=== PATIENT | female | born 1985 | race American Indian/Alaskan Native ===

== ENCOUNTER 2020-07-02 20:47 | Emergency (ER) | payer MEDICAID | END 2020-07-02 21:00 | disposition left against medical advice (07) | LOC: ED 20:47 | DX: O26.891 Other specified pregnancy related conditions, first trimester (principal); R51.9 Headache, unspecified; R11.0 Nausea; Z3A.01 Less than 8 weeks gestation of pregnancy; Z53.21 Procedure and treatment not carried out due to patient leaving prior to being seen by health care provider ==

== ENCOUNTER 2020-07-20 18:41 | Emergency (ER) | payer MEDICAID ==
[2020-07-20 21:18] VITALS: BP 141/83
[2020-07-20 22:08] LABS: Basophils # (Auto) 0.1 K/mm3 (0.0-0.1); Basophils % (Auto) 1.1 % (0.0-1.8); Eosinophils # (Auto) 0.1 K/mm3 (0.0-0.4); Eosinophils % (Auto) 1.1 % (0.0-4.3); Hematocrit 29.3 % (30.3-42.9); Hemoglobin 9.8 gm/dl (10.1-14.3); Lymphocytes # (Auto) 3.3 K/mm3 (1.2-5.4); Lymphocytes % (Auto) 34.5 % (13.4-35.0); Mean Corpuscular HGB Conc 33 % (30-34); Monocytes # (Auto) 0.9 K/mm3 (0.0-0.8); Monocytes % (Auto) 9.5 % (0.0-7.3); Platelet Count 563 K/mm3 (140-440); Red Blood Count 4.45 M/mm3 (3.65-5.03)
[2020-07-20 22:13] LABS: Mean Corpuscular Volume 66 fl (79-97); Red Cell Distribution Width 21.5 % (13.2-15.2)
[2020-07-20 22:18] LABS: INR 1.08 (0.87-1.13)
[2020-07-20 22:19] LABS: Partial Thromboplastin Time 28.6 Sec. (24.2-36.6)
--- NOTE | 2020-07-20 23:08 | Emergency Department Report ---
ED HPI - General Chief complaint: Vaginal Bleeding Stated complaint: MISCARRIAGE Time Seen by Provider: 07/20/20 21:38 Source: patient Mode of arrival: Ambulatory Limitations: No Limitations - History of Present Illness Initial comments: This is a 35-year-old female nontoxic, well nourished in appearance, no acute signs of distress presents to the ED with c/o of vaginal bleeding and pelvic pain x1 day. Stated had about 1-2 pads in the past 24 hours. Patient denies any vaginal discharge or foul odor. Patient denies any nausea, vomiting, chest pain, shortness of breathe, fever, chills, headache, stiff neck, numbness, tingling. Patient denies any urinary symptoms. Patient denies any significant past medical history. MD Complaint: vaginal bleeding -: days(s) Location: pelvis Radiation: none Severity: mild Severity scale (0 -10): 3 Quality: cramping, aching Consistency: intermittent Improves with: none Worsens with: none Associated symptoms: vaginal bleeding. denies: nausea/vomiting, vaginal discharge, abdominal pain, dysuria, headache, vision changes, malaise, dysparuenia, rash, seizure, shortness of breath, syncope, weakness Vaginal bleeding: light :: Yes Number of weeks : 8 Pre- care: none - Related Data Home Medications Medication Instructions Recorded Confirmed Last Taken Pnv95/Ferrous Fumarate/FA 1 each PO DAILY 06/25/13 06/25/13 Unknown [ Multivitamins Tablet] Previous Rx's Medication Instructions Recorded Last Taken Type Ferrous Sulfate [Feosol 325 MG tab] 325 mg PO BID #60 tablet 06/28/13 Unknown Rx Ibuprofen [Motrin] 600 mg PO Q6H PRN #30 tablet 06/28/13 Unknown Rx Ona027/Iron Fum/Folic/Docusate 1 each PO QDAY #30 tablet 06/28/13 Unknown Rx [ 19 Tablet] Nitrofurantoin Sanders/M-Cryst 100 mg PO Q12HR #14 capsule 07/21/20 Unknown Rx [Macrobid CAP] Allergies Allergy/AdvReac Type Severity Reaction Status Date / Time hydromorphone HCl Allergy Anaphylaxis Verified 06/25/13 01:22 [From Dilaudid] wheat Allergy Hives Verified 06/25/13 01:22 cillins Allergy Anaphylaxis Uncoded 06/25/13 01:22 ED Review of Systems ROS: Stated complaint: MISCARRIAGE Other details as noted in HPI Comment: All other systems reviewed and negative Constitutional: denies: chills, fever Eyes: denies: eye pain, eye discharge, vision change ENT: denies: ear pain, throat pain Respiratory: denies: cough, shortness of breath, wheezing Cardiovascular: denies: chest pain, palpitations Endocrine: no symptoms reported Gastrointestinal: denies: abdominal pain, nausea, diarrhea Genitourinary: abnormal menses. denies: urgency, dysuria, frequency, hematuria, discharge, dyspareunia Musculoskeletal: denies: back pain, joint swelling, arthralgia Skin: denies: rash, lesions Neurological: denies: headache, weakness, paresthesias Psychiatric: denies: anxiety, depression Hematological/Lymphatic: denies: easy bleeding, easy bruising ED Past Medical Hx - Past Medical History Previous Medical History?: Yes Hx Hypertension: No Hx Diabetes: (pre-diabetic) Hx Deep Vein Thrombosis: No Hx Renal Disease: No Hx Sickle Cell Disease: No Hx Seizures: No Hx Asthma: No Hx HIV: No Additional medical history: pre-eclampsia - Surgical History Past Surgical History?: Yes Hx Cholecystectomy: Yes Additional Surgical History: ,TUMMY TUCK - Social History Smoking Status: Never Smoker Substance Use Type: None - Medications Home Medications: Home Medications Medication Instructions Recorded Confirmed Last Taken Type Pnv95/Ferrous Fumarate/FA 1 each PO DAILY 06/25/13 06/25/13 Unknown History [ Multivitamins Tablet] Ferrous Sulfate [Feosol 325 MG tab] 325 mg PO BID #60 tablet 06/28/13 Unknown Rx Ibuprofen [Motrin] 600 mg PO Q6H PRN #30 tablet 06/28/13 Unknown Rx Gmp980/Iron Fum/Folic/Docusate 1 each PO QDAY #30 tablet 06/28/13 Unknown Rx [ 19 Tablet] Nitrofurantoin Sanders/M-Cryst 100 mg PO Q12HR #14 capsule 07/21/20 Unknown Rx [Macrobid CAP] ED Physical Exam - General Limitations: No Limitations General appearance: alert, in no apparent distress - Head Head exam: Present: atraumatic, normocephalic - Eye Eye exam: Present: normal appearance - Neck Neck exam: Present: normal inspection, full ROM. Absent: lymphadenopathy - Respiratory Respiratory exam: Absent: respiratory distress - Cardiovascular Cardiovascular Exam: Present: regular rate - GI/Abdominal GI/Abdominal exam: Present: soft, normal bowel sounds. Absent: distended, tenderness, guarding, rebound, rigid, diminished bowel sounds - Extremities Exam Extremities exam: Present: normal inspection, full ROM - Back Exam Back exam: Present: normal inspection, full ROM. Absent: tenderness, CVA tenderness (R), CVA tenderness (L), muscle spasm, paraspinal tenderness, vertebral tenderness, rash noted - Neurological Exam Neurological exam: Present: alert, oriented X3, normal gait - Psychiatric Psychiatric exam: Present: normal affect, normal mood - Skin Skin exam: Present: warm, dry, intact, normal color. Absent: rash ED Course Vital Signs 07/20/20 19:24 Temperature 98.1 F Pulse Rate 94 H Respiratory 14 Rate Blood Pressure 141/83 O2 Sat by Pulse 100 Oximetry - Reevaluation(s) Reevaluation #1: 07/20/20 23:08 Patient is speaking in full sentences with no signs of distress noted. ED Medical Decision Making - Lab Data Result diagrams: 07/20/20 21:45 Lab Results 07/20/20 07/20/20 07/20/20 Range/Units 21:45 21:45 21:45 WBC 9.7 (4.5-11.0) K/mm3 RBC 4.45 (3.65-5.03) M/mm3 Hgb 9.8 L (10.1-14.3) gm/dl Hct 29.3 L (30.3-42.9) % MCV 66 L (79-97) fl MCH 22 L (28-32) pg MCHC 33 (30-34) % RDW 21.5 H (13.2-15.2) % Plt Count 563 H (140-440) K/mm3 Lymph % (Auto) 34.5 (13.4-35.0) % Sanders % (Auto) 9.5 H (0.0-7.3) % Eos % (Auto) 1.1 (0.0-4.3) % Baso % (Auto) 1.1 (0.0-1.8) % Lymph # (Auto) 3.3 (1.2-5.4) K/mm3 Sanders # (Auto) 0.9 H (0.0-0.8) K/mm3 Eos # (Auto) 0.1 (0.0-0.4) K/mm3 Baso # (Auto) 0.1 (0.0-0.1) K/mm3 Seg Neutrophils % 53.8 (40.0-70.0) % Seg Neutrophils # 5.2 (1.8-7.7) K/mm3 PT 13.8 (12.2-14.9) Sec. INR 1.08 (0.87-1.13) APTT 28.6 (24.2-36.6) Sec. HCG, Quant 552.3 H (0-4) mIU/mL Urine Color (Yellow) Urine Turbidity (Clear) Urine pH (5.0-7.0) Ur Specific [place] (1.003-1.030) Urine Protein (Negative) mg/dL Urine Glucose (UA) (Negative) mg/dL Urine Ketones (Negative) mg/dL Urine Blood (Negative) Urine Nitrite (Negative) Urine Bilirubin (Negative) Urine Urobilinogen (<2.0) mg/dL Ur Leukocyte Esterase (Negative) Urine WBC (Auto) (0.0-6.0) /HPF Urine RBC (Auto) (0.0-6.0) /HPF U Epithel Cells (Auto) (0-13.0) /HPF Urine Bacteria (Auto) (Negative) /HPF Urine Mucus /HPF Blood Type 07/20/20 07/21/20 Range/Units 21:45 00:05 WBC (4.5-11.0) K/mm3 RBC (3.65-5.03) M/mm3 Hgb (10.1-14.3) gm/dl Hct (30.3-42.9) % MCV (79-97) fl MCH (28-32) pg MCHC (30-34) % RDW (13.2-15.2) % Plt Count (140-440) K/mm3 Lymph % (Auto) (13.4-35.0) % Sanders % (Auto) (0.0-7.3) % Eos % (Auto) (0.0-4.3) % Baso % (Auto) (0.0-1.8) % Lymph # (Auto) (1.2-5.4) K/mm3 Sanders # (Auto) (0.0-0.8) K/mm3 Eos # (Auto) (0.0-0.4) K/mm3 Baso # (Auto) (0.0-0.1) K/mm3 Seg Neutrophils % (40.0-70.0) % Seg Neutrophils # (1.8-7.7) K/mm3 PT (12.2-14.9) Sec. INR (0.87-1.13) APTT (24.2-36.6) Sec. HCG, Quant (0-4) mIU/mL Urine Color Yellow (Yellow) Urine Turbidity Slightly-cloudy (Clear) Urine pH 5.0 (5.0-7.0) Ur Specific [place] 1.025 (1.003-1.030) Urine Protein 30 mg/dl (Negative) mg/dL Urine Glucose (UA) Neg (Negative) mg/dL Urine Ketones Neg (Negative) mg/dL Urine Blood Lg (Negative) Urine Nitrite Pos (Negative) Urine Bilirubin Neg (Negative) Urine Urobilinogen < 2.0 (<2.0) mg/dL Ur Leukocyte Esterase Tr (Negative) Urine WBC (Auto) 10.0 H (0.0-6.0) /HPF Urine RBC (Auto) 2.0 (0.0-6.0) /HPF U Epithel Cells (Auto) 3.0 (0-13.0) /HPF Urine Bacteria (Auto) 2+ (Negative) /HPF Urine Mucus 3+ /HPF Blood Type B POSITIVE - Radiology Data [facility] [address] [place] [address] Ultrasound Report Signed Patient: KRYSTEN GUILLEN MR#: [id number] : 1985 Acct:[id number] Age/Sex: 35 / F ADM Date: 07/20/20 Loc: ED Attending Dr: Ordering Physician: BERNARDO HOLMAN NP Date of Service: 07/20/20 Procedure(s): US OB <= 14 weeks fetus Accession Number(s): [id number] cc: BERNARDO HOLMAN NP ULTRASOUND PELVIS INDICATION: vaginal bleeding and pelvic pain. TECHNIQUE: Transabdominal. Duplex Color Doppler used: Yes. COMPARISON: None avai lable FINDINGS: Uterus: Present. Size: 10.4 x 5.3 x 7.8 cm. Endometrial complex: Normal measuring 0.68 cm. Mass lesions: None. Additional findings: None. Right Ovary -- Normal. Blood flow: Normal. Cyst or mass: None. Left Ovary-- Normal. Blood flow: Normal. Cyst or mass: None. 2.2 cm cyst. Urinary Bladder: Normal. Free Fluid: None. Additional Findings: None. IMPRESSION: 1. No intrauterine or significant endometrial clot. 2. Small cyst left ovary. Signer Name: Gunnar Mireles MD Signed: 07/21/2020 1:12 AM Workstation Name: [id number] Transcribed By: ES Dictated By: Gunnar Mireles MD Electronically Authenticated By: Gunnar Mireles MD Signed Date/Time: 07/21/20111 DD/ 9 TD/TT: - Medical Decision Making This is a 35-year-old female presents with threatened miscarriage and UTI. Patient is stable and was examined by me. Normal abdominal exam. US OB obtained and dictated by the radiologist. Ua obtained. Quantative serum test obtained. Patient notified of the US report with no questions noted by the patient. Pat ient was instructed f/u with [facility] in 2 days. RH factor positive. Labs within normal limits. Patient was given strict precautions and education on ectopic . At time of discharge, the patient does not seem toxic or ill in appearance. No acute signs of distress noted. Patient agrees to discharge treatment plan of care. No further questions noted by the patient. Critical care attestation.: If time is entered above; I have spent that time in minutes in the direct care of this critically ill patient, excluding procedure time. ED Disposition Clinical Impression: Threatened miscarriage UTI (urinary tract infection) Qualifiers: Urinary tract infection type: acute cystitis Hematuria presence: with hematuria Qualified Code(s): N30.01 - Acute cystitis with hematuria Disposition: TO HOME OR SELFCARE Is pt being admited?: No Does the pt Need Aspirin: No Condition: Stable Instructions: Threatened Miscarriage, [id number], Urinary Tract Infection, Adult, [id number] Additional Instructions: Follow-up with a [facility] doctor in 2 days for repeat quantitative and possible ultrasound or if symptoms worsen and continue return to emergency room as soon as possible. Prescriptions: Nitrofurantoin Sanders/M-Cryst [Macrobid CAP] 100 mg PO Q12HR #14 capsule Referrals: PRIMARY CAREMD [Primary Care Provider] - 3-5 Days [facility] [Provider Group] - 07/23/20 [facility] [Provider Group] - 07/23/20 Forms: Work/School Release Form(ED) Time of Disposition: 01:23
[2020-07-21 00:28] LABS: Bacteria,Urine 2+ /HPF (Negative); Bilirubin,Urine NEG (Negative); Blood,Urine LG (Negative); Color,Urine Yellow (Yellow); Mucus,Urine 3+ /HPF; Urobilinogen,Urine < 2.0 mg/dL (<2.0)
--- NOTE | 2020-07-21 01:16 | Ultrasound Report ---
ULTRASOUND PELVIS INDICATION: vaginal bleeding and pelvic pain. TECHNIQUE: Transabdominal. Duplex Color Doppler used: Yes. COMPARISON: None available FINDINGS: Uterus: Present. Size: 10.4 x 5.3 x 7.8 cm. Endometrial complex: Normal measuring 0.68 cm. Mass lesions: None. Additional findings: None. Right Ovary -- Normal. Blood flow: Normal. Cyst or mass: None. Left Ovary-- Normal. Blood flow: Normal. Cyst or mass: None. 2.2 cm cyst. Urinary Bladder: Normal. Free Fluid: None. Additional Findings: None. IMPRESSION: 1. No intrauterine or significant endometrial clot. 2. Small cyst left ovary. Signer Name: Gunnar Mireles MD Signed: 07/21/2020 1:12 AM Workstation Name: [address] [id number]
== END 2020-07-21 01:45 | disposition home or self-care (01) ==
LOC: ED 18:41
DX: O20.0 Threatened abortion (principal); Z79.899 Other long term (current) drug therapy; Z98.890 Other specified postprocedural states; Z3A.01 Less than 8 weeks gestation of pregnancy
CPT/HCPCS: 36415; 76801; 81001; 84702; 85025; 85610; 85730; 86900; 86901; 87086